=== PATIENT | female | born 1960 | race Caucasian/White ===

== ENCOUNTER 2017-11-08 16:10 | Emergency (ER) | payer OTHER ==
[~2017-11-08] VITALS: Ht 172.7 cm; Wt 88.5 kg
[2017-11-08] MEDS ORDERED: MORPHINE SULFATE 4 MG/ML VIAL. ONE (17:08)
[2017-11-08] MEDS ORDERED: ONDANSETRON PF 4 MG/2 ML VIAL. ONE (17:08)
[2017-11-08] MEDS ORDERED: ONDANSETRON PF 4 MG/2 ML VIAL. IV ONE ×2 (17:15→18:15)
[2017-11-08] MEDS ORDERED: IV NORMAL SALINE 1000ML BAG 1,000 ML IV ONE (17:15)
[2017-11-08] MEDS ORDERED: MORPHINE SULFATE 4 MG/ML VIAL. IV ONE (17:15)
--- NOTE | 2017-11-08 17:29 | EKG ---
[facility] [address] [place] [address] Test Date: 2017-11-08 Test Time: 17:24:43 Pat Name: LASHAE FREEMAN Department: Room: Gender: Female [employer]: : 1960 Requested By: NATIVIDAD DURHAM Order Number: [id number] Reading MD: Malcom Morgan MD Measurements Intervals [place] Rate: 81 P: 46 AL: 190 QRS: 41 QRSD: 78 T: 16 QT: 374 QTc: 435 Interpretive Statements SINUS RHYTHM Electronically Signed On 11-10-2017 10:03:57 CDT by Malcom Morgan MD
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
[2017-11-08 18:00] VITALS: BP 135/79
[2017-11-08] MEDS ORDERED: LIDOCAINE 1% PF 30 ML VIAL. INJ ONE (18:00)
[2017-11-08] MEDS ORDERED: DIPHTH,PERTUSS(ACELL),TET TOX 0.5 ML DISP.SYRIN. VAX IM ONE (18:00)
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
[2017-11-08 18:07] LABS: BASO # 0.1 x10^3/uL (0.0-0.2); BASO % 1 % (0-3); EOS # 0.2 x10^3/uL (0.0-0.7); EOS % 2 % (0-3); HEMATOCRIT 42.5 % (36.0-47.0); HEMOGLOBIN 14.5 g/dL (12.0-15.5); LYMPH # 2.5 x10^3/uL (1.0-4.8); LYMPH % 19 % (24-48); MEAN CORPUSCULAR HEMOGLOBIN 28 pg (25-35); MEAN CORPUSCULAR HGB CONC 34 g/dL (31-37); MEAN CORPUSCULAR VOLUME 84 fL (79-100); MONO # 0.7 x10^3/uL (0.0-1.1); MONO % 5 % (0-9); NEUT % 74 % (31-73); PLATELET COUNT 254 x10^3/uL (140-400); RED BLOOD COUNT 5.09 x10^6/uL (3.50-5.40); RED CELL DISTRIBUTION WIDTH 15.2 % (11.5-14.5); WHITE BLOOD COUNT 13.5 x10^3/uL (4.0-11.0)
[2017-11-08 18:15] LABS: CALCIUM 8.9 mg/dL (8.5-10.1); CREATININE 0.9 mg/dL (0.6-1.0); POTASSIUM 3.7 mmol/L (3.5-5.1)
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
[2017-11-08 18:42] LABS: FREE T4 1.13 ng/dL (0.76-1.46); THYROID STIM HORMONE (TSH) 2.439 uIU/mL (0.358-3.74)
[2017-11-08] MEDS ORDERED: diphenhydrAMINE 50 MG/ML VIAL IVP ONE (18:45)
[2017-11-08] MEDS ORDERED: PROCHLORPERAZINE 10 MG/2 ML VIAL. IV ONE (18:45)
[2017-11-08] MEDS ORDERED: HYDR-971 PO (18:46)
[2017-11-08] MEDS ORDERED: DIAZ5TAB PO (18:46)
[2017-11-08] MEDS ORDERED: METO10TA81 PO (18:46)
[2017-11-08] MEDS ORDERED: IBUP-1060 PO (18:46)
== END 2017-11-08 19:30 | disposition home or self-care (01) ==
LOC: ER 16:10
DX: S01.311A Laceration without foreign body of right ear, initial encounter (principal); S50.811A Abrasion of right forearm, initial encounter; V87.8XXA Person injured in other specified noncollision transport accidents involving motor vehicle (traffic), initial encounter; Y93.89 Activity, other specified; Y92.488 Other paved roadways as the place of occurrence of the external cause; Y99.8 Other external cause status
CPT/HCPCS: 12011; 36415; 70450; 72125; 73080; 80048; 84439; 84443; 84484; 85025; 90471; 90715; 93005; 96374; 96375; 96376; 99285; J0780; J1200; J2270; J2405; J7030